=== PATIENT | male | born 1950 | race Caucasian/White ===

== ENCOUNTER 2018-11-15 14:04 | Inpatient (IN) | payer MEDICARE, OTHER | END 2018-11-20 15:00 | disposition home or self-care (01) | LOC: MED 3N 11-17 16:40 → ER 14:04 → PCU 3S 11-16 00:29 → ED HOLD 23:02 | PROC: 4A023N7 Measurement of Cardiac Sampling and Pressure, Left Heart, Percutaneous Approach (ICD-10-PCS; principal; ~2018-11-15) | PROC: B211YZZ Fluoroscopy of Multiple Coronary Arteries using Other Contrast (ICD-10-PCS; ~2018-11-15) | PROC: B215YZZ Fluoroscopy of Left Heart using Other Contrast (ICD-10-PCS; ~2018-11-15) | DX: I21.4 Non-ST elevation (NSTEMI) myocardial infarction (principal); J18.9 Pneumonia, unspecified organism; I10 Essential (primary) hypertension ==

== ENCOUNTER 2023-10-31 12:50 | Emergency (ER) | payer MEDICARE, SELFPAY ==
[~2023-10-31] VITALS: Ht 182.9 cm; Wt 102.5 kg
[~2023-10-31 12:50] MED LIST: ASPI-1265 PO; ATOR20TA66 PO; BIMA2.5D OP; BRIN10DR6 EACHEYE; CLOP75TA15 PO; COR3.125T PO; LACT1CAP26 PO; LISI-642 PO; TIMO5DRO44 LEFTEYE
[2023-10-31 12:57] VITALS: TEMP 97.6
[2023-10-31 13:36] LABS: BASOPHILS % (AUTO) 0.6 % (0-1); EOSINOPHILS # (AUTO) 0.4 X10'3 (0-0.9); EOSINOPHILS % (AUTO) 5.4 % (0-6); HEMATOCRIT 42.5 % (42.0-52.0); HEMOGLOBIN 14.1 g/dl (14.0-17.9); LYMPHOCYTES # (AUTO) 1.3 X10'3 (1.1-4.8); LYMPHOCYTES % (AUTO) 19.3 % (21-51); MEAN CORPUSCULAR HEMOGLOBIN 31.6 PG (27.0-31.0); MEAN CORPUSCULAR HGB CONC 33.2 g/dL (33.0-36.5); MEAN CORPUSCULAR VOLUME 95.2 FL (78-98); MEAN PLATELET VOLUME 9.5 FL (7.4-10.4); MONOCYTES # (AUTO) 0.7 X10'3 (0-0.9); NEUTROPHILS # (AUTO) 4.5 X10'3 (1.8-7.7); NEUTROPHILS % (AUTO) 64.7 % (42-75); PLATELET COUNT 233 X10'3 (140-440); RED BLOOD COUNT 4.46 X10'6 (4.70-6.10); RED CELL DISTRIBUTION WIDTH 13.1 % (11.5-14.5)
[2023-10-31 14:09] LABS: ALANINE AMINOTRANSFERASE 27 U/L (12-78); ALBUMIN 4.3 G/DL (3.4-5.0); ALBUMIN/GLOBULIN RATIO 1.3 (1.1-1.5); ALKALINE PHOSPHATASE 107 IU/L (46-116); ANION GAP 9 (8-16); ASPARTATE AMINO TRANSFERASE 29 U/L (10-37); BILIRUBIN,TOTAL 0.9 MG/DL (0.1-1.0); BLOOD UREA NITROGEN 14 MG/DL (7-18); BUN/CREATININE RATIO 11.6 (10.0-20.0); CALCIUM 9.4 MG/DL (8.5-10.1); CHLORIDE 105 MMOL/L (99-107); CREATININE 1.21 MG/DL (0.60-1.10); GLUCOSE 98 MG/DL (70-104); POTASSIUM 4.4 MMOL/L (3.5-5.1); SODIUM 140 MMOL/L (135-145); TOTAL CARBON DIOXIDE 25.8 MMOL/L (24-32); TOTAL PROTEIN 7.7 G/DL (6.4-8.2); eCRCL 61 ML/MIN; eGFR 59 ML/MIN
[2023-10-31 14:17] LABS: PRO BRAIN NATRIURETIC PEPTIDE 227 PG/ML (0-125)
[2023-10-31 17:25] VITALS: BP 169/98; PULSE 51; RESP 18; O2SAT 100
== END 2023-10-31 21:09 | disposition home or self-care (01) ==
LOC: ER 12:50
DX: R00.1 Bradycardia, unspecified (principal); R07.89 Other chest pain; E78.00 Pure hypercholesterolemia, unspecified; I10 Essential (primary) hypertension; Z79.82 Long term (current) use of aspirin; Z79.899 Other long term (current) drug therapy; Z98.890 Other specified postprocedural states
CPT/HCPCS: 36415; 71045; 80053; 83880; 84484; 85025; 93005; 99285

== ENCOUNTER 2024-04-26 13:36 | Inpatient (IN) | payer MEDICARE, OTHER ==
[~2024-04-26] VITALS: Ht 182.9 cm; Wt 93.8 kg
[2024-04-26 14:01] LABS: BASOPHILS # (AUTO) 0.1 X10'3 (0-0.2); BASOPHILS % (AUTO) 0.5 % (0-1); EOSINOPHILS # (AUTO) 0.2 X10'3 (0-0.9); EOSINOPHILS % (AUTO) 1.4 % (0-6); HEMATOCRIT 39.9 % (42.0-52.0); HEMOGLOBIN 13.2 g/dl (14.0-17.9); LYMPHOCYTES # (AUTO) 1.2 X10'3 (1.1-4.8); LYMPHOCYTES % (AUTO) 10.2 % (21-51); MEAN CORPUSCULAR HEMOGLOBIN 31.4 PG (27.0-31.0); MEAN CORPUSCULAR HGB CONC 33.2 g/dL (33.0-36.5); MEAN CORPUSCULAR VOLUME 94.6 FL (78-98); MEAN PLATELET VOLUME 9.7 FL (7.4-10.4); MONOCYTES # (AUTO) 1.3 X10'3 (0-0.9); MONOCYTES % (AUTO) 10.9 % (2-12); NEUTROPHILS # (AUTO) 9.2 X10'3 (1.8-7.7); PLATELET COUNT 228 X10'3 (140-440); RED BLOOD COUNT 4.21 X10'6 (4.70-6.10); RED CELL DISTRIBUTION WIDTH 13.4 % (11.5-14.5)
[2024-04-26 14:16] LABS: ALANINE AMINOTRANSFERASE 31 U/L (12-78); ALBUMIN 4.2 G/DL (3.4-5.0); ALBUMIN/GLOBULIN RATIO 1.4 (1.1-1.5); ALKALINE PHOSPHATASE 76 IU/L (46-116); ANION GAP 10 (8-16); ASPARTATE AMINO TRANSFERASE 28 U/L (10-37); BILIRUBIN,TOTAL 0.6 MG/DL (0.1-1.0); BLOOD UREA NITROGEN 108 MG/DL (7-18); CALCIUM 9.2 MG/DL (8.5-10.1); CHLORIDE 109 MMOL/L (99-107); CREATININE 3.73 MG/DL (0.60-1.10); GLUCOSE 108 MG/DL (70-104); POTASSIUM 4.9 MMOL/L (3.5-5.1); SODIUM 141 MMOL/L (135-145); TOTAL CARBON DIOXIDE 22.3 MMOL/L (24-32); TOTAL PROTEIN 7.2 G/DL (6.4-8.2); eCRCL 20 ML/MIN; eGFR 16 ML/MIN
[2024-04-26 14:23] LABS: PRO BRAIN NATRIURETIC PEPTIDE 195 PG/ML (0-125)
[2024-04-26] MEDS: normal saline 1000ML IV soln IVB ONE (15:07)
[2024-04-26] MEDS ORDERED: CARV6.253 PO (15:12)
[2024-04-26] MEDS ORDERED: LISI20TA28 PO (15:12)
[2024-04-26] MEDS ORDERED: ATOR-2 PO (15:12)
[2024-04-26] MEDS ORDERED: EVOL140S2 SQ (15:12)
[2024-04-26] MEDS ORDERED: ASPI-1265 PO (15:14)
[2024-04-26] MEDS ORDERED: magnesium hydroxide 30ml (MOM) UD suspension PO PRN (15:45)
[2024-04-26] MEDS ORDERED: mag hydrox/Alum hydrox/simeth 30ml oral suspension PO PRN (15:45)
[2024-04-26] MEDS ORDERED: potassium Cl 20 mEq SR tablet PO PRN ×2 (15:45)
[2024-04-26] MEDS ORDERED: magnesium sulf-water 2g/50mL 50 ML IV PRN (15:45)
[2024-04-26] MEDS ORDERED: acetaminophen 325mg tablet PO PRN (15:45)
[2024-04-26] MEDS ORDERED: potassium Cl 40MEQ/1/2NS 520ml 520 ML IV PRN (15:45)
[2024-04-26] MEDS ORDERED: magnesium sulf-water 4G/100mL 100 ML IV PRN (15:45)
[2024-04-26] MEDS ORDERED: ondansetron/PF 4mg/2ml inj IV PRN (15:45)
[2024-04-26] MEDS ORDERED: magnesium Cl slow-release 64mg tablet PO PRN (15:45)
[2024-04-26] MEDS: EVOLOCUMAB SQ SCH (16:15)
[2024-04-26] MEDS: normal saline 1000ml 1,000 ML IV SCH (19:12)
[2024-04-26 20:00] VITALS: BP_SYST 109; BP_SYST 110; BP_DIAS 58; BP_DIAS 60
[2024-04-26] MEDS: K and/or MAG REPLACEMENT MC SCH (20:00)
[2024-04-26] MEDS: heparin, porcine 5000 units/ml vial SQ SCH (20:00)
[2024-04-26] MEDS: carvedilol 6.25mg tablet PO SCH (20:21)
[2024-04-26] MEDS: BIMATOPROST EACHEYE SCH (21:00)
[2024-04-26 21:47] LABS: BILIRUBIN,URINE NEGATIVE (Neg); CLARITY,URINE CLEAR (Clear); COLOR,URINE YELLOW (Yellow); GLUCOSE, URINE NEGATIVE (Neg); KETONES,URINE NEGATIVE (Neg); LEUKOCYTE ESTERASE ,URINE NEGATIVE (Neg); NITRITES, URINE NEGATIVE (Neg); OCCULT BLOOD,URINE NEGATIVE (Neg); PROTEIN,URINE NEGATIVE (Neg); UROBILINOGEN,URINE 0.2 E.U/dL (0.2-1.0)
[2024-04-26 22:05] LABS: UA COLLECTION TYPE CLN CATCH MIDSTREAM
[2024-04-26 22:10] VITALS: BP 116/60; PULSE 60; RESP 20; TEMP 98.2; O2SAT 99
[2024-04-26 22:13] VITALS: RESP 18; O2SAT 99
[2024-04-26 23:28] LABS: UA EOSINOPHILS NO EOS /HPF
[2024-04-27] VITALS (8 sets, daily range): BP systolic 80–129; BP diastolic 44–69; PULSE 52–72; RESP 16–19; TEMP 97.4–98; O2SAT 98–99
[2024-04-27 07:21] LABS: BASOPHILS % (AUTO) 0.6 % (0-1); EOSINOPHILS # (AUTO) 0.1 X10'3 (0-0.9); EOSINOPHILS % (AUTO) 1.6 % (0-6); HEMATOCRIT 35.1 % (42.0-52.0); HEMOGLOBIN 11.9 g/dl (14.0-17.9); LYMPHOCYTES # (AUTO) 0.9 X10'3 (1.1-4.8); LYMPHOCYTES % (AUTO) 16.4 % (21-51); MEAN CORPUSCULAR HEMOGLOBIN 32.6 PG (27.0-31.0); MEAN CORPUSCULAR VOLUME 95.7 FL (78-98); MEAN PLATELET VOLUME 10.2 FL (7.4-10.4); MONOCYTES # (AUTO) 0.7 X10'3 (0-0.9); MONOCYTES % (AUTO) 12.3 % (2-12); NEUTROPHILS % (AUTO) 69.1 % (42-75); PLATELET COUNT 150 X10'3 (140-440); RED BLOOD COUNT 3.66 X10'6 (4.70-6.10); RED CELL DISTRIBUTION WIDTH 13.4 % (11.5-14.5); WHITE BLOOD COUNT 5.8 X10'3 (4.5-11.0)
[2024-04-27] MEDS: aspirin 81mg tab.chew PO SCH (07:32)
[2024-04-27] MEDS: timolol 0.5% ophthalmic solution 5ml bottle LEFTEYE SCH (07:33)
[2024-04-27] MEDS: atorvastatin 20mg tablet PO SCH (07:33)
[2024-04-27 07:44] LABS: ALBUMIN 3.2 G/DL (3.4-5.0); ANION GAP 10 (8-16); BLOOD UREA NITROGEN 74 MG/DL (7-18); BUN/CREATININE RATIO 40.7 (10.0-20.0); CALCIUM 8.5 MG/DL (8.5-10.1); CHLORIDE 116 MMOL/L (99-107); CHOL/HDL RATIO 1.3 (0.00-4.99); CHOLESTEROL 58 MG/DL (0-200); CREATININE 1.82 MG/DL (0.60-1.10); GLUCOSE 90 MG/DL (70-104); HDL CHOLESTEROL 46 MG/DL (35-60); LDL CHOLESTEROL 8 MG/DL (50-100); POTASSIUM 4.6 MMOL/L (3.5-5.1); SODIUM 146 MMOL/L (135-145); TOTAL CARBON DIOXIDE 19.7 MMOL/L (24-32); TRIGLYCERIDES 72 MG/DL (20-135); eCRCL 41 ML/MIN; eGFR 37 ML/MIN
[2024-04-27] MEDS: ringers solution, lacted 1,000 ML IV SCH (09:11)
[2024-04-27] MEDS: normal saline 1000ml 1,000 ML IV ONE (17:06)
[2024-04-27] MEDS: normal saline 1000ml 1,000 ML IV SCH (19:35)
[2024-04-28 02:00] VITALS: BP 112/60; PULSE 53; RESP 14; TEMP 97.1; O2SAT 99
[2024-04-28 06:00] VITALS: BP 110/52; PULSE 50; RESP 17; TEMP 98.2; O2SAT 98
[2024-04-28 08:00] VITALS: BP_SYST 110; BP_SYST 118; BP_SYST 131; BP_DIAS 51; BP_DIAS 53; BP_DIAS 60; PULSE 42; PULSE 44; PULSE 57; RESP 17; O2SAT 98
[2024-04-28 08:16] LABS: BASOPHILS % (AUTO) 0.5 % (0-1); EOSINOPHILS # (AUTO) 0.2 X10'3 (0-0.9); EOSINOPHILS % (AUTO) 2.6 % (0-6); HEMOGLOBIN 12.2 g/dl (14.0-17.9); LYMPHOCYTES # (AUTO) 1.3 X10'3 (1.1-4.8); LYMPHOCYTES % (AUTO) 18.3 % (21-51); MEAN CORPUSCULAR HEMOGLOBIN 31.6 PG (27.0-31.0); MEAN CORPUSCULAR VOLUME 95.6 FL (78-98); MEAN PLATELET VOLUME 9.9 FL (7.4-10.4); MONOCYTES # (AUTO) 0.7 X10'3 (0-0.9); MONOCYTES % (AUTO) 10.6 % (2-12); NEUTROPHILS # (AUTO) 4.7 X10'3 (1.8-7.7); PLATELET COUNT 167 X10'3 (140-440); RED BLOOD COUNT 3.87 X10'6 (4.70-6.10); RED CELL DISTRIBUTION WIDTH 13.5 % (11.5-14.5)
[2024-04-28 08:31] LABS: ALBUMIN 3.3 G/DL (3.4-5.0); ANION GAP 7 (8-16); BLOOD UREA NITROGEN 35 MG/DL (7-18); BUN/CREATININE RATIO 27.8 (10.0-20.0); CALCIUM 8.3 MG/DL (8.5-10.1); CHLORIDE 117 MMOL/L (99-107); CREATININE 1.26 MG/DL (0.60-1.10); GLUCOSE 95 MG/DL (70-104); POTASSIUM 4.7 MMOL/L (3.5-5.1); SODIUM 146 MMOL/L (135-145); TOTAL CARBON DIOXIDE 22.2 MMOL/L (24-32); eCRCL 59 ML/MIN; eGFR 56 ML/MIN
[2024-04-28 11:00] VITALS: BP 151/46; PULSE 57; RESP 16; TEMP 97.7; O2SAT 99
== END 2024-04-28 15:25 | disposition home or self-care (01) | DRG 640 ==
LOC: ER 13:37 → UNDOADMIN 15:45 → ED HOLD 15:45 → PCU 3S 21:35 → UNDODISIN 04-28 15:25
PROVIDERS: ADMIT Family Medicine; ATTEND Family Medicine
DX: E86.0 Dehydration (principal); N17.0 Acute kidney failure with tubular necrosis; E78.00 Pure hypercholesterolemia, unspecified; I12.9 Hypertensive chronic kidney disease with stage 1 through stage 4 chronic kidney disease, or unspecified chronic kidney disease; I25.10 Atherosclerotic heart disease of native coronary artery without angina pectoris; N18.9 Chronic kidney disease, unspecified; I25.2 Old myocardial infarction; Z90.5 Acquired absence of kidney; Z90.49 Acquired absence of other specified parts of digestive tract; Z79.82 Long term (current) use of aspirin; Z79.899 Other long term (current) drug therapy
CPT/HCPCS: 36415; 70450; 71045; 80048; 80053; 80061; 81003; 82570; 82948; 83880; 83935; 84300; 84484; 85025; 87207; 93005; 93306; 97161; 97530; 99285; G0378; J1644; J7030; J7120